=== PATIENT | male | born 1970 | race Caucasian/White ===

== ENCOUNTER 2018-11-04 05:47 | Inpatient (IN) | payer OTHER ==
[2018-11-04] MEDS ORDERED: PROPOFOL 20 ML (06:51)
[2018-11-04] MEDS ORDERED: LIDOCAINE 2% (SDV) 5 ML INJ (06:53)
[2018-11-04] MEDS ORDERED: ROCURONIUM 50 MG INJ (06:53)
[2018-11-04] MEDS ORDERED: SEVOFLURANE 15 MIN (07:00)
[2018-11-04] MEDS ORDERED: morphine 10 MG INJ (07:42)
[2018-11-04] MEDS: GELATIN SIZE 100 SPONGE (08:04)
[2018-11-04] MEDS: THROMBIN (BOVINE) 5,000 UNIT VIAL TP ×2 (08:04→10:35)
[2018-11-04] MEDS: BUPIVACAINE 0.5%/EPI (SDV) 30 ML INJ (08:04)
[2018-11-04] MEDS ORDERED: DEXAMETHASONE 4 MG/ML 5 ML INJ (10:07)
[2018-11-04] MEDS ORDERED: ONDANSETRON 4 MG INJ (10:08)
[2018-11-04] MEDS ORDERED: CEFAZOLIN 1 GM INJ (10:08)
[2018-11-04] MEDS ORDERED: CA CHLORIDE 10% 10 ML SYRINGE (10:22)
[2018-11-04] MEDS: POLYMYXIN/BACITRACIN 1L IRRIG (10:35)
[2018-11-04] MEDS ORDERED: GLYCOPYRROLATE 0.4 MG INJ (11:12)
[2018-11-04] MEDS ORDERED: NEOSTIGMINE 3 MG/3 ML SYRINGE (11:12)
[2018-11-04] MEDS ORDERED: EPHEDrine 25 MG/5 ML SYG IV (11:30)
[2018-11-04] MEDS ORDERED: LABETALOL HCL 20MG INJ IV (11:30)
[2018-11-04] MEDS ORDERED: OXYCODONE/ACETAMINOPHEN (5/325) TAB PO ×2 (11:30)
[2018-11-04] MEDS ORDERED: AL HYDROX/MG HYDROX/SIMETH 30 ML CUP PO (11:30)
[2018-11-04] MEDS ORDERED: CYCLOBENZAPRINE 10 MG TAB PO (11:30)
[2018-11-04] MEDS ORDERED: NALOXONE (0.4 MG/ML) INJ IV (11:30)
[2018-11-04] MEDS ORDERED: BISACODYL 10 MG SUPP PR (11:30)
[2018-11-04] MEDS ORDERED: HYDROmorphONE 0.2 MG/ML PCA (11:30)
[2018-11-04] MEDS ORDERED: METOCLOPRAMIDE 10 MG INJ IV (11:30)
[2018-11-04] MEDS ORDERED: DIPHENHYDRAMINE 25 MG CAP PO (11:30)
[2018-11-04] MEDS ORDERED: FENTAnyl 50 MCG/ML VIAL IV ×3 (11:30)
[2018-11-04] MEDS ORDERED: hydrALAzine 20 MG INJ IV (11:30)
[2018-11-04] MEDS ORDERED: DIPHENHYDRAMINE 50 MG INJ IV ×2 (11:30)
[2018-11-04] MEDS ORDERED: ONDANSETRON 4 MG INJ IV (11:30)
[2018-11-04] MEDS ORDERED: KETOROLAC 30 MG INJ IV (11:30)
[2018-11-04] MEDS ORDERED: ALBUTEROL 0.083% (NEB) 2.5 MG/3 ML AMP HHN (11:30)
[2018-11-04] MEDS ORDERED: CEPASTAT LOZENGE MT (11:30)
[2018-11-04] MEDS ORDERED: HYDROmorphONE 0.5 MG/0.5 ML SYG IV (11:30)
[2018-11-04] MEDS ORDERED: MEPERIDINE 25 MG INJ IV (11:30)
[2018-11-04] MEDS ORDERED: ACETAMINOPHEN 325 MG TAB PO (11:30)
[2018-11-04] MEDS ORDERED: HYDROCODONE/APAP (10/325) TAB PO (11:30)
[2018-11-04] MEDS ORDERED: HYDROmorphONE 1 MG/5 ML IV SYRINGE IV (11:31)
[2018-11-04] MEDS: HYDROmorphONE 1 MG/5 ML IV SYRINGE IV ×4 (11:51→12:09)
[2018-11-04] MEDS ORDERED: CEFAZOLIN 1 GM/50 ML (PMX) 0 ML IVPB (11:58)
[2018-11-04] MEDS: HYDROmorphONE 0.2 MG/ML PCA IV (12:18)
[2018-11-04] MEDS: ONDANSETRON 4 MG INJ IV ×2 (13:56→22:04)
[2018-11-04] MEDS ORDERED: ALPRAZOLAM 0.25 MG TAB PO (14:00)
[2018-11-04] MEDS: CEFAZOLIN 1 GM/50 ML (PMX) 50 ML IVPB ×2 (14:00→22:03)
[2018-11-04] MEDS: D5W-0.45 NACL + KCL 20 MEQ 1,000 ML IV (14:01)
[2018-11-04] MEDS: METOCLOPRAMIDE 10 MG INJ IV (15:51)
[2018-11-04] MEDS: DOCUSATE SODIUM 100 MG CAP PO (20:35)
[2018-11-04] MEDS: PREGABALIN 50 MG CAP PO (20:35)
[2018-11-04] MEDS: FLUTICASONE 0.05% 16 GM NAS SPRAY NASAL (20:36)
[2018-11-04] MEDS ORDERED: PREGABALIN 50 MG CAP PO (21:00)
[2018-11-05] MEDS: D5W-0.45 NACL + KCL 20 MEQ 1,000 ML IV ×2 (01:21→10:00)
[2018-11-05] MEDS: HYDROCODONE/APAP (10/325) TAB PO ×3 (01:26→12:34)
[2018-11-05 05:10] LABS: ADD MAN DIFF? NO
[2018-11-05 05:17] LABS: BASOPHILS % 0.1 % (0.0-2.0); HEMATOCRIT 41.5 % (42.0-52.0); HEMOGLOBIN 13.9 g/dl (14.0-18.0); LYMPHOCYTES # 1.2 10^3/ul (0.8-2.9); MEAN CORPUSCULAR HEMOGLOBIN 30.5 pg (29.0-33.0); MEAN CORPUSCULAR HGB CONC 33.5 g/dl (32.0-37.0); MEAN CORPUSCULAR VOLUME 91.2 fl (82.0-101.0); MONOCYTE # 1.2 10^3/ul (0.3-0.9); NEUTROPHIL # 9.3 10^3/ul (1.6-7.5); NEUTROPHILS % 79.3 % (39.0-77.0); PLATELET COUNT 216 10^3/UL (140-415); RED BLOOD COUNT 4.55 10^6/ul (4.70-6.10)
[2018-11-05 05:17] LABS: WHITE BLOOD COUNT 11.8 10^3/ul (4.8-10.8)
[2018-11-05] MEDS: CEFAZOLIN 1 GM/50 ML (PMX) 50 ML IVPB (05:22)
[2018-11-05] MEDS: PANTOPRAZOLE (EC) 40 MG TAB PO (05:22)
[2018-11-05 05:36] LABS: ANION GAP 14 (5-13); BLOOD UREA NITROGEN 10 mg/dl (7-20); CALCIUM 9.2 mg/dl (8.4-10.2); CARBON DIOXIDE 26 mmol/L (21-31); CHLORIDE 105 mmol/L (97-110); CREATININE 0.83 mg/dl (0.61-1.24); Estimated GFR > 60 mL/min (>60); GLUCOSE 134 mg/dl (70-220); MAGNESIUM 2.1 mg/dl (1.7-2.5); POTASSIUM 3.9 mmol/L (3.5-5.1); SODIUM 145 mmol/L (135-144)
[2018-11-05] MEDS: DOCUSATE SODIUM 100 MG CAP PO (08:54)
[2018-11-05] MEDS: LORATADINE 10 MG TAB PO (08:54)
[2018-11-05] MEDS: PREGABALIN 50 MG CAP PO (08:54)
[2018-11-05] MEDS: FLUTICASONE 0.05% 16 GM NAS SPRAY NASAL (08:54)
[2018-11-05] MEDS: MULTIVITAMINS THERAPEUTIC TAB PO (08:54)
== END 2018-11-05 15:00 | disposition home or self-care (01) | DRG 455 ==
LOC: REC 05:47 → MS1 13:39
PROC: 0SG00A0 Fusion of Lumbar Vertebral Joint with Interbody Fusion Device, Anterior Approach, Anterior Column, Open Approach (ICD-10-PCS; principal; 2018-11-04 07:00)
PROC: 0SG00K1 Fusion of Lumbar Vertebral Joint with Nonautologous Tissue Substitute, Posterior Approach, Posterior Column, Open Approach (ICD-10-PCS; 2018-11-04 07:00)
PROC: 0ST20ZZ Resection of Lumbar Vertebral Disc, Open Approach (ICD-10-PCS; 2018-11-04 07:00)
DX: M48.061 Spinal stenosis, lumbar region without neurogenic claudication (principal); M54.16 Radiculopathy, lumbar region; K21.9 Gastro-esophageal reflux disease without esophagitis; E78.1 Pure hyperglyceridemia; J30.9 Allergic rhinitis, unspecified; G47.33 Obstructive sleep apnea (adult) (pediatric); M53.2X6 Spinal instabilities, lumbar region
CPT/HCPCS: 72020; 72110; 80048; 83735; 85025; 86999; 88304; 97110; 97116; 97161